=== PATIENT | male | born 1990 | race Caucasian/White ===

== ENCOUNTER 2022-12-13 20:27 | Observation (INO) | payer BC, SELFPAY ==
[2022-12-13] VITALS (7 sets, daily range): BP systolic 127–145; BP diastolic 76–85; PULSE 119; RESP 6–19; TEMP 37.8; O2SAT 97–100
--- NOTE | ~2022-12-13 | CT_ITS ---
EXAMINATION: CT abdomen pelvis w con DATE: 12/13/2022 23:15 INDICATION: Right lower quadrant abdominal pain. TECHNIQUE: Computed tomography (CT) of the abdomen and pelvis was performed with 100 mL Omnipaque 350 intravenous contrast. Automated exposure control and iterative reconstruction technique were employe d. The dose-length product was 1049.83 mGy-cm. COMPARISON: None. FINDINGS: The visualized portions of the lung bases demonstrate mild atelectasis. No pleural effusion . The heart size is normal. No pericardial effusion. There is a small sliding hiatal hernia. The live r, gallbladder, spleen, pancreas, adrenal glands, and kidneys are normal. The appendix is fluid-fille d and dilated to 15 mm with surrounding fat stranding, consistent with appendicitis. There are no pat hologically enlarged lymph nodes. There is trace ascites in right paracolic gutter. There is mild tho racic and lumbar spondylosis. IMPRESSION: 1. Acute appendicitis. Reviewed, dictated and finalized at location A. IMPRESSION: 1. Acute appendicitis.
[2022-12-13 20:40] LABS: Basophils Percent Auto 0.2 % (0.2-1.2); Eosinophils Percent Auto 0.3 % (0-4.4); Hematocrit 41.6 % (42.0-52.0); Hemoglobin 14.8 g/dL (14.0-18.0); Immature Granulocyte Absolute 0.05 K/mm3 (0.00-0.031); Immature Granulocyte Percent A 0.3 % (0-0.5); Lymphocytes Absolute Auto 1.96 K/mm3 (0.9-3.2); Lymphocytes Percent Auto 12.6 % (18.3-44.2); Mean Corpuscular HGB Conc 35.6 g/dl (32-36); Mean Corpuscular Hemoglobin 31.4 pg (26-34); Mean Corpuscular Volume 88.3 fl (80-100); Mean Platelet Volume 9.1 fl (7.4-10.4); Monocytes Percent Auto 6.5 % (2.6-8.5); Neutrophils Absolute Auto 12.5 K/mm3 (1.3-6.7); Neutrophils Percent Auto 80.1 % (45.5-73.1); Platelet Count Result 186 k/mm3 (150-375); Red Blood Count 4.71 M/mm3 (4.6-6.20); Red Cell Distribution Width 12.2 % (11.5-14.5); White Blood Count 15.6 K/mm3 (4.5-10.0)
[2022-12-13 20:45] LABS: Appearance Urine Clear (Clear); Bilirubin Urine 1+ (Negative); Blood Urine Negative (Negative); Color Urine Yellow (Yellow); Glucose Urine UA Negative (Negative); Ketones Urine 1+ mg/dL (Negative); Leukocyte Esterase Ur Negative LEU/UL (Negative); Nitrate Urine Negative (Negative); Protein Urine 1+ mg/dL (Negative); Specific Grav Ur 1.015 (1.001-1.035); Urobilinogen Urine 0.2 mg/dL (<2.0)
[2022-12-13 20:52] LABS: Alanine Aminotransferase 22 U/L (6-50); Albumin Level 4.5 g/dL (3.5-5.1); Alkaline Phosphatase 45 U/L (38-126); Anion Gap 9 mmol/L (8-16); Aspartate Amino Transferase 25 U/L (17-59); Bilirubin,Total 2.3 mg/dL (0.2-1.3); Blood Urea Nitrogen 8 mg/dL (9-20); Calcium 9.2 mg/dL (8.4-10.2); Carbon Dioxide 28 mmol/L (22-30); Chloride 100 mmol/L (98-107); Estimated CRCL calculation 117 ml/min; Estimated Glomerular Filt Rate > 60; Glucose 129 mg/dL (65-110); Lipase 38 U/L (23-300); Potassium 3.7 mmol/L (3.4-5.0); Sodium 137 mmol/L (137-145)
[2022-12-13 20:53] LABS: Bacteria Urine None Seen /hpf; Non Pathogenic Casts 0-2; RBC Urine 0-2 /hpf (0-2); Squamous Epithelial Cell Urine None seen /hpf (Few); WBC Urine 0-5 /hpf
[2022-12-13 20:56] LABS: Add Urine Microscopic? YES
--- NOTE | 2022-12-13 22:25 | ED.ABDPAIN ---
HPI - Abdominal Pain General Chief Complaint: Abdominal Pain <Enma Holder APRN - Last Filed: 12/14/22 04:25> Stated Complaint: Abd pain, n/v/d <Enma Holder APRN - Last Filed: 12/14/22 04:25> Time Seen by Provider: 12/13/22 22:01 <Enma Holder APRN - Last Filed: 12/14/22 04:25> Source: patient and family (spouse) <Enma Holder APRN - Last Filed: 12/14/22 04:25> Mode of arrival: ambulatory <Enma Holder APRN - Last Filed: 12/14/22 04:25> Limitations: no limitations <Enma Holder APRN Last Filed: 12/14/22 04:25> History of Present Illness HPI narrative: Patient is a pleasant 32-year-old male without significant past medical hx who presents emergency department today ambulatory with a steady gait with spouse for evaluation of abdominal pain that started this afternoon. He states that initially started to the middle /epigastric region of the abdomen and then radiated down to the right lower quadrant. He has had fever, chills, nausea, vomiting. Pain is worse with moving and sitting in certain positions. Denies any urinary symptoms. Denies constipation or diarrhea. Denies any chest pain, shortness a breath, dizziness, blood in the stool, or any other symptoms. <Enma Holder APRN Last Filed: 12/14/22 04:25> Related Data Home Medications: Home Medications Medication Instructions Recorded Confirmed No Home Medications 12/13/22 12/13/22 <Enma Holder APRN - Last Filed: 12/14/22 04:25> Allergies/Adverse Reactions: Allergies Allergy/AdvReac Type Severity Reaction Status Date / Time No Known Allergies Allergy Verified 12/13/22 22:49 <Enma Holder APRN - Last Filed: 12/14/22 04:25> Review of Systems Review of Systems: CONSTITUTIONAL: +fever, chills. denies sweats. EYES: Denies visual changes, redness, or discharge. ENT: Denies rhinorrhea, congestion, sore throat, or otalgia. CARDIOVASCULAR: Denies chest pain, palpitations, or edema. RESPIRATORY: Denies cough or dyspnea. GASTROINTESTINAL: +nausea, vomiting, rlq abdominal pain. GENITOURINARY: Denies dysuria or hematuria. SKIN: Denies rash or itching. MUSCULOSKELETAL: Denies back pain, joint pain, or myalgia. NEUROLOGIC: Denies headache, numbness, or weakness. PSYCHIATRIC: Denies anxiety or depression. 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 HEAD: Normocephalic, atraumatic. EYES: PERRLA and EOMI. ENT: Nares clear, no rhinorrhea or epistaxis. Mucous membranes moist. NECK: Supple. CHEST: Clear to auscultation. No respiratory distress. HEART: Regular rate and rhythm. No murmur heard. Normal peripheral pulses. ABDOMEN: Soft, nondistended. Tenderness to the RLQ with + McBurney's sign. mild guarding noted- no rebound. normal bowel sounds. EXTREMITIES: Normal range of motion. No edema. SKIN: Warm, dry, no rash. NEURO: No focal deficits. Alert and oriented x3. CN II-XII grossly intact PSYCH: Normal mood and affect. <Enma Holder APRN - Last Filed: 12/14/22 04:25> Course EMPLOYEE'S REPRESENTATIVE/PA Physician Supervision 0424: Discussed with ER attending DR. Messina. aware of plan of care including CT scan results, if normal can dc home. <Enma Holder, MANAGER LAB - Last Filed: 12/14/22 04:25> 0424: [place]
[2022-12-13] MEDS: SODIUM CHLORIDE 0.9% IV 1,000 ML 999 ML IV CONT (22:44)
[2022-12-13] MEDS: ONDANSETRON INJ 4 MG/2 ML VIAL IV PUSH (22:44)
[2022-12-14] VITALS (39 sets, daily range): BP systolic 105–135; BP diastolic 53–81; PULSE 78–99; RESP 12–25; TEMP 36.6–37.2; O2SAT 90–99; BMI 32.5
[2022-12-14] MEDS: fentaNYL CITRATE INJ (*CRX) 100 MCG/2 ML VIAL IV PUSH ×2 (03:23)
[2022-12-14] MEDS: PIPERACILLN/TAZ 3.375GM/NS50ML 3.375 GM/50 ML BAG IVPB ×2 (05:07→12:22)
[2022-12-14] MEDS: SODIUM CHLORIDE 0.9% IV 1,000 ML 125 ML IV CONT (05:35)
--- NOTE | 2022-12-14 05:35 | ADMGEN ---
This patient, Gonzalez Wright, was admitted to Medical Room 346-01. Patient/family oriented to hospital policies and general routines including ID bracelet, bed and alarms, visiting hours, pain management, procedures, bathroom and other care routines, personal items, smoking policy, room service/diet, and visiting hours. Information on how to activate the Rapid Response Team has been discussed. Patient/Family are encouraged to report perceived risks to care and to ask questions if they do not understand what they are told or what they should do.
[2022-12-14] MEDS: HYDROmorphone HCL INJ (*CRX) 1 MG/ML SYR 0.5 MG IV PUSH (05:57)
--- NOTE | 2022-12-14 08:33 | PM.IMHP ---
H&P: HPI History of Present Illness Date/Time: 12/14/22 08:33 Chief Complaint: RLQ abdominal pain Narrative: This is a 32-year-old male with a history of asthma, who presented to the ER for RLQ abdominal pain x 1 day. He reportedly woke up in the middle of the night two nights ago with cramping upper abdominal pain. He initially thought it was possibly gas pains and tried moving his bowels without any relief. Into the morning, his abdominal pain continued to gradually become worse and he developed nausea, vomiting, and diarrhea. By last evening, his abdominal pain localized to the RLQ. He then presented to the ER in the evening for further evaluation. Labs were significant for a WBC count of 15,600 and total bilirubin 2.3. CT scan of the abdomen and pelvis showed acute appendicitis. No CT evidence of perforation or abscess. He was started on IV fluids and IV Zosyn, and then admitted to our service for surgical evaluation of acute appendicitis. He is now seen on the medical floor. No previous abdominal surgeries. Nausea has improved without any vomiting since admission. His abdominal pain is currently controlled with the IV Dilaudid. Review of Systems Review of Systems: All systems reviewed & are unremarkable except as noted in HPI and below PMFSH Past Medical History Medical History Asthma Surgical History Surgical History No pertinent past surgical history Family History Family History Mother DVT (deep venous thrombosis) Father Hypertension Grandparent Heart attack Grandparent Breast cancer Grandparent Lung cancer Social History Social History Smoking status: Never smoker Smokeless tobacco user: other Alcohol intake: current Drinks per week: 12 Alcohol use details: occasional Substance use: never Lack of Transportation: No Lack of Food: Never True Current Housing: I Have Housing Concerned About Future Housing: No Difficulty Paying Gas/Electric Bills: No Difficulty Paying for Meds: No Currently Unemployed: No Education: High School Diploma/GED Difficulty w/ Childcare or Family Care: No Living arrangements: with family Occupation/Education: occupation 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 Gender identity (if verbalized by the patient): Male Spiritual care concerns: No Meds Home Medications and Allergies Home Medications Medication Instructions Recorded Confirmed Type albuterol sulfate 90 mcg/actuation 1 puff inhalation Q4H PRN 12/14/22 12/14/22 History aerosol inhaler Shortness Of Breath Or Wheezing Allergies Allergy/AdvReac Type Severity Reaction Status Date / Time No Known Allergies Allergy Verified 12/14/22 05:40 Vital Signs Vital Signs - 24 hr 12/13/22 20:30 12/13/22 22:45 12/13/22 22:46 Temperature 100.0 F H Pulse Rate 119 H Respiratory Rate 19 Blood Pressure 145/85 H 127/76 Pulse Oximetry 98 98 99 Oxygen Delivery Room Air 12/13/22 22:47 12/13/22 23:00 12/13/22 23:02 Temperature Pulse Rate Respiratory Rate Blood Pressure 129/76 Pulse Oximetry 97 98 99 Oxygen Delivery 12/13/22 23:58 12/14/22 00:00 12/14/22 00:01 Temperature Pulse Rate 82 86 Respiratory Rate 6 L 20 23 H Blood Pressure 125/78 Pulse Oximetry 100 99 98 Oxygen Delivery 12/14/22 00:39 12/14/22 00:45 12/14/22 00:46 Temperature Pulse Rate 82 81 81 Respiratory Rate 13 14 15 Blood Pressure 121/73 Pulse Oximetry 97 94 98 Oxygen Delivery 12/14/22 01:00 12/14/22 01:01 12/14/22 01:15 Temperature Pulse Rate 83 81 82 Respiratory Rate 17 25 H 15 Blood Pressure 123/72 Pulse Oximetry 96 97 96 Oxygen Delivery 12/14/22 01:16 12/14/22 01:35 12/14/22 01:45 [place]
--- NOTE | 2022-12-14 10:45 | WPDHPUPDATE1 ---
History and Physical Update Update Date/Time: 12/14/22 10:45 History and Physical has been reviewed, including an updated exam of the patient. There are NO changes in the patient's condition. Risks, benefits, and alternatives have been discussed and questions answered. Patient agrees to proceed with procedure.
[2022-12-14] MEDS: LACTATED RINGERS 1,000 ML 30 ML IV CONT ×2 (12:05→14:40)
--- NOTE | 2022-12-14 12:18 | WPDANESEPPF ---
Anes - Initial Pre Proc Eval Procedure: Operation Date: 12/14/22 13:15 Proposed Procedures p Laparoscopic Appendectomy - Susan Pickens MD Date/Time: 12/14/22 12:18 Surgeon: Meet Lucio DO Pre Op Diagnosis: Acute appendicitis Patient Data Age: 32 Gender: M Height: 1.78 m Weight: 102.7 kg Last Vital Signs Temp 36.8 C 12/14/22 05:30 Pulse 78 12/14/22 05:30 Resp 18 12/14/22 05:30 BP 110/62 12/14/22 05:30 Pulse Ox 97 12/14/22 05:30 O2 Del Method Room Air 12/13/22 20:30 Allergies Allergy/AdvReac Type Severity Reaction Status Date / Time No Known Allergies Allergy Verified 12/14/22 05:40 Home Medications Medication Instructions Recorded Confirmed Type albuterol sulfate 90 mcg/actuation 1 puff inhalation Q4H PRN 12/14/22 12/14/22 History aerosol inhaler Shortness Of Breath Or Wheezing Laboratory Tests 12/13/22 12/13/22 12/13/22 20:36 20:40 22:40 WBC 15.6 H K/mm3 (4.5-10.0) RBC 4.71 M/mm3 (4.6-6.20) Hgb 14.8 g/dL (14.0-18.0) Hct 41.6 L % (42.0-52.0) MCV 88.3 fl (80-100) MCH 31.4 pg (26-34) MCHC 35.6 g/dl (32-36) RDW 12.2 % (11.5-14.5) Plt Count 186 k/mm3 (150-375) MPV 9.1 fl (7.4-10.4) Immature Gran % (Auto) 0.3 % (0-0.5) Neut % (Auto) 80.1 H % (45.5-73.1) Lymph % (Auto) 12.6 L % (18.3-44.2) [place] % (Auto) 6.5 % (2.6-8.5) Eos % (Auto) 0.3 % (0-4.4) Baso % (Auto) 0.2 % (0.2-1.2) Lymph # (Auto) 1.96 K/mm3 (0.9-3.2) [place] # (Auto) 1.0 H K/mm3 (0.1-0.6) Eos # (Auto) 0.0 K/mm3 (0-0.3) Baso # (Auto) 0.0 K/mm3 (0.0-0.1) Abs Immat Gran (auto) 0.05 H K/mm3 (0.00-0.031) Absolute Neuts (auto) 12.5 H K/mm3 (1.3-6.7) Absolute Nucleated RBC 0.0 K/mm3 (0.0-0.012) Nucleated RBC % 0.0 % (0.0-0.2) Sodium 137 mmol/L (137-145) Potassium 3.7 mmol/L (3.4-5.0) Chloride 100 mmol/L (98-107) Carbon Dioxide 28 mmol/L (22-30) Anion Gap 9 mmol/L (8-16) BUN 8 L D mg/dL (9-20) Creatinine 1.00 mg/dL (0.7-1.3) Estim Creat Clear Calc 117 ml/min Estimated GFR > 60 (59 - ) Glucose 129 H mg/dL (65-110) Lactic Acid 1.0 mmol/L (0.7-2.0) Calcium 9.2 mg/dL (8.4-10.2) Total Bilirubin 2.3 H mg/dL (0.2-1.3) AST 25 U/L (17-59) ALT 22 U/L (6-50) Alkaline Phosphatase 45 U/L (38-126) Total Protein 8.0 g/dL (6.3-8.2) Albumin 4.5 g/dL (3.5-5.1) Lipase 38 U/L (23-300) Urine Color Yellow (Yellow) Urine Appearance Clear (Clear) Urine pH 7.0 (5.0-9.0) Ur Specific [place] 1.015 (1.001-1.035) Urine Protein 1+ H mg/dL (Negative) Urine Glucose (UA) Negative mg/dL (Negative) Urine Ketones 1+ H mg/dL (Negative) Ur Blood (Man) Negative (Negative) Urine Nitrate Negative (Negative) Urine Bilirubin 1+ H (Negative) Urine Urobilinogen 0.2 mg/dL (<2.0) Leukocyte Esterase Rfl Negative DOMONIQUE/UL (Negative) Urine RBC 0-2 /hpf (0-2) Urine WBC 0-5 /hpf Ur Squamous Epith Cells None seen /hpf (Few) Urine Bacteria None seen /hpf Urine Casts 0-2 Patient hx anesthesia problems: none Family hx anesthesia problems: none Results Review: All pre-operative results and documents have been reviewed as part of the pre-operative evaluation. [facility] Past Medical History Medical History (Updated 12/14/22 @ 12:18 by Gustavo Dee MD) Asthma Obesity Surgical History Surgical History (Reviewed 12/14/22 @ 08:47 by Rhea Stevenson
[2022-12-14] MEDS: BUPIVACAINE/EPINEPHRINE 0.5% 50 ML VIAL 30 ML INFILTRATE (13:41)
--- NOTE | 2022-12-14 14:35 | P.OP_ITS ---
Procedure Note - Detailed Date of Procedure 12/14/22 Pre-op Diagnosis Acute appendicitis Post-op Diagnosis Same Procedure Performed laparoscopic appendectomy Surgeon Susan Pickens MD Anesthesia General Indications 32 y/o M presenting to ED c acute appendicitis. Findings acute appendicitis no evidence of perforation Description of Procedure The patient was taken to the operating room and placed in the supine position. After adequate induction of general anesthesia, the patient was prepped and draped in the normal sterile fashion. A time-out was then done to verify the patient's identity, as well as the procedure being performed. I began by making a 5 mm incision in the infraumbilical region, through this a Veress needle was placed in the peritoneal cavity. CO2 gas was then insufflated and after ad equate pneumoperitoneum was achieved the Veress needle was removed. Then placed a 5 mm Optiview trocar under direct visualization into the peritoneal cavity. I then insufflated through this trocar site and the endoscope was placed into the trocar. Under direct visualization, placed 2 further 5 mm suprapubic port as well as an additional 12 mm port in the left lower abdomen. At this point ident ified the cecum, I retracted the cecum both medially and superiorly allowing me to expose the appendix. The appendix was noted to be very dilated and inflamed. The appendix was noted to be very adherent to the right lateral sidewall as well as the ileum. I was able to bluntly dissect the appendix from these adhesions. I then was able to locate the base of the appendix with the cecum. I created a window with the [place] dissector between the appendix itself and the mesoappendix. I then transected the mesoappendix with a white vascular staple load. The Endo-JOHN was then reloaded with a blue staple load and I transected the base of the appendix. Of note, the vascular staple load did not fire correctly despite changing loads and staplers. Given this, I had to use the sharp cautery to take down part of the meso appendix. Once the specimen was completely detached, an endo-pouch was placed into the 12 mm port site and the specimen was removed through the endo-pouch. The appendiceal specimen will be sent to pathology for further review. I then copiously irrigated the right lower quadrant. Hemostasis was noted at both staple lines no other pathology was seen in this area. I then moved the camera to the suprapubic port to check our its port of entry. No iatrogenic injury or other pathology was noted in the upper abdomen. I then closed the 12 mm port site with a Trent code and 0 Vicryl suture under direct visualization. At this point, the abdomen was desufflated and all ports were removed. All port sites were closed with 4 Monocryl subcuticular suture. Dermabond was placed on all wounds. The patient tolerated the procedure well and was extubated in the operating room postop. He will be sent to the recovery room in stable condition. Estimated Blood Loss 10 Drains No Packing No Pathology Yes Complications No immediate complications Condition Stable Disposition PACU [facility] Billing Surgery - Charge Forward: Surgery Billing
[2022-12-14] MEDS: fentaNYL CITRATE INJ (*CRX) 100 MCG/2 ML VIAL 25 MCG IV PUSH ×4 (15:13→15:21)
[2022-12-14] MEDS: HYDROcodone/acetaminophen (*CRX) 5-325 MG TABLET 1 TAB PO (15:57)
--- NOTE | 2022-12-14 16:16 | PC.NURSE ---
Patient back from OR, on RA a0-4. Pain of 4/10, given oral pain medications, patient ambulated to bathroom, is able to tolerate fluids and eating crackers. Discharge information reviewed with Patient and family bedside, able to void.
--- NOTE | 2022-12-15 12:26 | PM.DS ---
DS: Admitting Diagnosis Discharge Date 12/14/22 Admitting Diagnosis Acute appendicitis DS: Discharge Diagnosis Discharge Diagnosis (1) Acute appendicitis: Code(s): K35.80 - Unspecified acute appendicitis Status: Acute Assessment and Plan: status post laparoscopic appendectomy, continue routine postoperative care, home with p.o. analgesia and Colace, follow-up 2 weeks (2) Nicotine abuse: Code(s): Z72.0 - Tobacco use Status: Acute Assessment and Plan: provider counseling DS: Summary Hospital Course Reason for hospitalization: acute appendicitis Hospital Course: The patient is a 32-year-old male presenting to the emergency department complaining of severe right lower quadrant abdominal pain. Workup, including CT, was significant for acute appendicitis. The patient was admitted to the surgical service and started on IV antibiotics. Upon evaluation, it was decided the patient would undergo emergent appendectomy. The patient was taken to the operating room and laparoscopic appendectomy was performed. Please see full operative report for details of that procedure. Postoperatively, the patient did well and was transferred back to the surgical floor. He was able to tolerate a diet and his pain was well controlled with p.o. analgesia. He was up and ambulating without difficulty. He will be sent home with instructions for routine postoperative care. He was sent home with prescriptions for [place] and Colace. He will follow up with me in 2 weeks. Status at Discharge Functional status at discharge: independent ambulation Overall status at discharge: patient is progressing back to baseline Time Spent with Patient Time attestation: Total time spent providing and/or coordinating discharge services: Time spent: Less than 30 minutes Exam Const: General: cooperative, comfortable and no acute distress Resp: Auscultation: clear to auscultation bilaterally Cardio: Rate: regular rate Rhythm: regular rhythm GI: Inspection: normal to inspection, distended and incision GI Palp: Yes abdominal tenderness, Yes Soft to palpation, Yes Tenderness to palpation present (GI), No Guarding due to palpation present (GI) and No Rigid due to palpation DS: Data Data Completed and Pending Pending studies at discharge: Pending at discharge 12/14/22 14:14 Surgical [PTH] Routine Labs on day of discharge: Preliminary micro results at discharge 12/14/22 06:16 Blood Culture - Preliminary Blood 12/14/22 06:16 Blood Culture - Preliminary Blood Discharge Plan Discharge Attending physician on discharge: Susan Pickens Consulting providers: Enma Holder; Rhea Schroeder; Edmundo Bhagat V.; Gustavo Dee Discharging Clinician: Susan Pickens Anticipated Discharge Date/Time: 12/14/22 18:00 Patient Disposition: Home, Self-Care Activity: other - see discharge instructions Diet: other - see discharge instructions Wound Care Instructions: incision open to air Discharge Instructions: DISCHARGE INSTRUCTION SHEET FOR HERNIA, GALLBLADDER AND APPENDIX SURGERIES DR. PICKENS PATIENT TO TAKE HOME 1. May shower in 24 hours, no soaking in bath x 2weeks. 2. Call office for: Wound increasingly painful or bleeding Vomiting Fever of greater than 101 degrees 3. If no bowel movement for three days, take 1 oz. (30 ml) Milk of Magnesia or MiraLax 17g 1 to 2 times daily. 4. No heavy lifting > 10-15 pounds x 6 weeks for hernia repairs and 2 weeks for laparoscopic cholecystectomy or appendectomy. 5. No driving for 3 days or while taking narcotic pain medications. 6. Ice to surgical site for 48 hours (30 min on, then 30 min off). 7. Up walking 10-30 minutes three times per day. 8. Resume previous home medications. 9. Follow-up 10-14 days in office for wound check or as previously scheduled. ([phone]) 10. Oral
== END 2022-12-14 16:45 | disposition home or self-care (01) ==
LOC: ANHED 12-14 04:53 → ANH3MED 12-14 06:08
PROVIDERS: Emergency Medicine; Admitting Provider Surgery; Emergency Provider Nurse Practitioner; PCP Internal Medicine; Visit Provider Surgery
PROC: 0DTJ4ZZ Resection of Appendix, Percutaneous Endoscopic Approach (ICD-10-PCS; CPT 44970; principal; 2022-12-14 13:15)
DX: K35.30 Acute appendicitis with localized peritonitis, without perforation or gangrene (principal); J45.909 Unspecified asthma, uncomplicated; D72.829 Elevated white blood cell count, unspecified; E66.9 Obesity, unspecified; Z68.32 Body mass index [BMI] 32.0-32.9, adult; Z72.0 Tobacco use; F10.90 Alcohol use, unspecified, uncomplicated; Z79.51 Long term (current) use of inhaled steroids
CPT/HCPCS: 44970; 36415; 74177; 80053; 81001; 83605; 83690; 85025; 87040; 88304; 96361; 96374; 96375; 96376; 99285; A9270; G0378; J1170; J2250; J2405; J2543; J3010; J7030; J7120; Q9967